=== PATIENT | male | born 1995 ===

== ENCOUNTER 2017-04-12 07:08 | Emergency (ER) | payer SELFPAY ==
[2017-04-12] MEDS ORDERED: Ondansetron HCl/PF 4 MG/2 ML Vial ONE (07:38)
[2017-04-12] MEDS ORDERED: Famotidine In NaCl 20 mg/50 ml Premix Bag ONE (07:38)
[2017-04-12 07:48] LABS: #Basophils 0.1 thou/uL (0.0-0.2); #Eosinphils 0.5 thou/uL (0.0-0.7); #Monocytes 0.7 thou/uL (0.11-0.59); #Neutrophils 4.7 thou/uL (1.40-6.50); %Basophils 1.4 % (0.0-1.0); %Eosinophils 6.1 % (0.0-10.0); %Lymphocytes 32.6 % (21.0-51.0); %Monocytes 7.7 % (0.0-10.0); %Neutrophils 52.3 % (42.0-75.0); Hemoglobin 16.6 g/dL (14.0-18.0); Mean Corpuscular HGB CONC 35.3 g/dL (32.0-36.0); Mean Corpuscular Hemoglobin 29.9 pg (27.0-31.0); Mean Corpuscular Volume 84.9 fl (80.0-94.0); Mean Platelet Volume 7.8 fL (7.4-10.4); Platelet Count 181 thou/uL (130-400); RBC Distribution Width 10.3 % (11.5-14.5); Red Blood Cell (RBC) Count 5.56 mill/uL (4.70-6.10); White Blood Cell (WBC) Count 9.1 thou/uL (4.8-10.8)
[2017-04-12 07:57] LABS: ALT (SGPT) 23 U/L (8-55); AST (SGOT) 16 U/L (5-34); Albumin 3.9 g/dL (3.5-5.0); Alkaline Phosphatase 89 U/L (40-150); Anion Gap 13 mmol/L (10-20); BUN (Urea Nitrogen) 12 mg/dL (8.9-20.6); Bilirubin, Total 0.3 mg/dL (0.2-1.2); Calc. Creatinine Clearance 0 mL/min (70-130); Calcium 8.7 mg/dL (7.8-10.44); Carbon Dioxide 27 mmol/L (22-29); Chloride 108 mmol/L (98-107); Estimated GFR-MDRD 85; Globulin 2.6 g/dL (2.4-3.5); Glucose 112 mg/dL (70-105); Lipase 22 U/L (8-78); Potassium 3.6 mmol/L (3.5-5.1); Protein, Total 6.5 g/dL (6.0-8.3); Sodium 144 mmol/L (136-145)
[2017-04-12 08:09] LABS: Bilirubin Negative (Negative); Blood, Urine Trace (Negative); Clarity Clear (Clear); Glucose, Urine (Dipstick) Negative (Negative); Leukocyte Negative (Negative); Nitrite Negative (Negative); Protein, Urine (Dipstick) Negative (Neg-Trace); Specific Gravity, Urine 1.025 (1.005-1.030)
[2017-04-12 08:15] LABS: Bacteria/HPF None Seen HPF (None Seen); RBC/HPF 0-3 HPF (0-3); Squamous Epithelial None Seen HPF (0-3); WBC/HPF None Seen HPF (0-3)
[2017-04-12] MEDS ORDERED: Iopamidol 370 76% 100 ML VIAL ONE (09:00)
--- NOTE | 2017-04-12 10:28 | RAD ---
ACUTE ABDOMEN SERIES: DATE: 04/12/17. FINDINGS: The gas pattern is nonspecific with gas present in large and small bowel. There is mild gaseous dis tention at most. A moderate amount of fecal material is seen in the colon. No free air was seen. No important calcifications were appreciated. The chest normal-sized heart and clear lungs. IMPRESSION: Nonspecific abdominal findings. POS: HOME
--- NOTE | 2017-04-12 10:39 | CT ---
CT OF THE ABDOMEN AND PELVIS: DATE: 04/12/17. FINDINGS: Spiral CT of the abdomen and pelvis was done after giving IV contrast. Oral contrast was deferred b y request. Axial slices were acquired, then coronal and sagittal reconstructions were done. The major finding on this study is enlargement of the gallbladder which is just over 10 cm long. Ch olesterol-type gallstones are seen internally and a few may actually be lodged in the neck. The gal lbladder wall seems mildly thickened. The finding suggests acute cholecystitis. The remainder of the examination was unremarkable. The lung bases are clear. The liver, spleen, pa ncreas, adrenal glands, kidneys, and abdominal aorta all appeared normal. The bowel is nondistended with no sign of obstruction, though there is an abundance of fecal material in the colon, especiall y the right colon. No free air or free fluid was seen. CT of the pelvis showed no pelvic masses, inflammatory changes, or other acute findings. The area a round the base of the cecum showed no inflammatory change. One might wonder if the thickness of the wall of the rectum and sigmoid is a little greater than normal, but the bowel is not very distended here and there is no inflammatory change around it. IMPRESSION: Findings suggestive of acute cholecystitis, possibly with gallstones impacted in the neck of the gal lbladder. Findings discussed with Dr. Pagan at 0922 on 04/12. CODE CR POS: HOME
== END 2017-04-12 09:34 | disposition home or self-care (01) ==
LOC: BURERS 07:08
DX: K80.50 Calculus of bile duct without cholangitis or cholecystitis without obstruction (principal); F17.220 Nicotine dependence, chewing tobacco, uncomplicated
CPT/HCPCS: 74022; 74177; 80053; 81003; 81015; 83690; 85025; 96365; 96375; J2405

== ENCOUNTER 2017-04-27 16:36 | Emergency (ER) | payer SELFPAY ==
[2017-04-27] MEDS ORDERED: Triamcinolone 40 MG/ML VIAL ONE (16:58)
[2017-04-27] MEDS ORDERED: diphenhydrAMINE 50 MG/ML VIAL ONE (16:58)
[2017-04-27] MEDS ORDERED: Albuterol Sulfate 1.25 MG/3 ML NEB ONE (17:50)
[2017-04-27] MEDS ORDERED: EPINEPHrine 1 MG/10 ML Abboject SYRINGE ONE (17:50)
[2017-04-27] MEDS ORDERED: EPINEPHrine 1 mg/ml MDV (1ml Charge) ONE (18:00)
[2017-04-27] MEDS ORDERED: methylPREDNISolone Sod Succ/PF 125 MG/2 ML VIAL ONE (18:45)
--- NOTE | 2017-04-27 21:38 | RAD ---
PORTABLE CHEST: Date: 04-27-17 FINDINGS: An AP portable film at 1647 shows a normal sized heart and clear lungs. There is no pulmonary edema, infiltrate, or pleural effusion. The mediastinum appears normal and the trachea is midline. IMPRESSION: No acute thoracic finding. POS: HOME
== END 2017-04-27 19:06 | disposition left against medical advice (07) ==
LOC: BURERS 16:36
DX: J45.902 Unspecified asthma with status asthmaticus (principal); F17.220 Nicotine dependence, chewing tobacco, uncomplicated
CPT/HCPCS: 71010; 94640; 96372; 96374; J0171; J1200; J2930; J3301; J7620